=== PATIENT | female | born 1965 | race Caucasian/White ===

== ENCOUNTER 2017-09-09 18:54 | Inpatient (IN) | payer MEDICAID ==
[~2017-09-09] VITALS: Ht 175.3 cm; Wt 121.8 kg
[2017-09-09] MEDS ORDERED: ZOLPIDEM TARTRATE 10 MG TABLET PO PRN (19:45)
[2017-09-09] MEDS ORDERED: HALOPERIDOL 5 MG TABLET PO PRN (19:45)
[2017-09-09] MEDS ORDERED: INFLUENZA VIRUS VACCINE QVS 2017-18 (3YR+)/PF 60 MCG/0.5 ML SYRINGE IM ONE (20:15)
[2017-09-09] MEDS ORDERED: PNEUMOCOCCAL VACCINE POLYVALENT 0.5 ML VIAL [PPSV23] IM ONE (20:15)
[2017-09-09 20:42] VITALS: BP 144/89
[2017-09-09] MEDS ORDERED: IBUPROFEN 600 MG TABLET PO PRN (20:45)
[2017-09-10 04:27] VITALS: BP 139/80
[2017-09-10 08:36] VITALS: BP 142/80
[2017-09-10] MEDS: QUEtiapine FUMARATE 100 MG TABLET PO SCH ×2 (09:25→20:35)
[2017-09-10 16:13] VITALS: BP 154/88
[2017-09-10] MEDS ORDERED: ACETAMINOPHEN 325 MG TABLET PO PRN (16:45)
[2017-09-10] MEDS ORDERED: IBUPROFEN 400 MG TABLET PO PRN (16:45)
[2017-09-11 05:59] VITALS: BP 140/74
[2017-09-11] MEDS: LORazepam 2 MG TABLET PO PRN ×2 (08:13→16:13)
[2017-09-11] MEDS: QUEtiapine FUMARATE 100 MG TABLET PO SCH ×2 (08:13→20:53)
[2017-09-11 08:27] VITALS: BP 147/83
[2017-09-11] MEDS ORDERED: AmLODIPine BESYLATE 2.5 MG TABLET PO SCH (09:00)
[2017-09-11 13:56] VITALS: BP 135/74
[2017-09-11 18:04] VITALS: BP 164/89
[2017-09-11] MEDS: CloNIDine HCL 0.1 MG TABLET PO PRN (18:37)
[2017-09-11 19:37] VITALS: BP 129/71
[2017-09-12 05:32] VITALS: BP 141/77
[2017-09-12] MEDS: LORazepam 2 MG TABLET PO PRN ×2 (05:40→16:29)
[2017-09-12 08:01] LABS: LYMPHOCYTES # (AUTO) 1.9 K/uL (1.0-4.8); MEAN CORPUSCULAR HGB CONC 34.1 G/dL (31.0-37.0); MONOCYTES # (AUTO) 0.4 K/uL (0.1-1.0); NEUTROPHILS # (AUTO) 3.7 K/uL (1.8-7.7)
[2017-09-12 08:04] LABS: BASOPHILS % (AUTO) 0.8 % (0.0-2.0); EOSINOPHILS % (AUTO) 2.8 % (1.0-6.0); LYMPHOCYTES % (AUTO) 30.6 % (22.0-44.0); MEAN CORPUSCULAR HEMOGLOBIN 28.3 pg (26.0-34.0); MEAN CORPUSCULAR VOLUME 83 fL (80-100); MONOCYTES % (AUTO) 6.4 % (2.0-9.0); NEUTROPHILS % (AUTO) 59.4 % (40.0-70.0); PLATELET COUNT (AUTO) 203 K/uL (150-450); RED BLOOD CELL COUNT(AUTO) 4.94 MIL/uL (4.00-5.20); RED CELL DISTRIBUTION WIDTH 16.2 % (11.5-14.5)
[2017-09-12] MEDS: AmLODIPine BESYLATE 5 MG TABLET PO SCH (08:13)
[2017-09-12] MEDS: QUEtiapine FUMARATE 100 MG TABLET PO SCH (08:13)
[2017-09-12 08:28] LABS: ALANINE AMINOTRANSFERASE 37 U/L (12-78); ALBUMIN 3.2 g/dL (3.4-5.0); ALKALINE PHOSPHATASE 86 U/L (46-116); ANION GAP 8 mmol/L (8-16); ASPARTATE AMINOTRANSFERASE 24 U/L (15-37); BILIRUBIN,TOTAL 0.4 mg/dL (0.1-1.0); CALCIUM, TOTAL 8.6 mg/dL (8.8-10.5); CARBON DIOXIDE 28 mmol/L (22-29); CHLORIDE 101 mmol/L (98-107); CHOL/HDL RATIO 4.8 (3.9-5.7); CHOLESTEROL 213 mg/dL (131-200); CREATININE 0.67 mg/dL (0.60-1.30); FREE T4 (FREE THYROXINE) 0.99 ng/dL (0.76-1.46); GLOMERULAR FILTR. RATE CALC > 60 mL/min (>60); GLUCOSE,RANDOM 106 mg/dL (70-110); HDL CHOLESTEROL 44 mg/dL (40-60); LDL CHOL (CALC.) 150 mg/dL (0-130); POTASSIUM 3.6 mmol/L (3.5-5.1); SODIUM SERUM 137 mmol/L (136-145); THYROID STIMULATING HORMONE 1.27 uIU/mL (0.36-3.74); TOTAL PROTEIN, SERUM 6.7 g/dL (6.4-8.2); TRIGLYCERIDES 97 mg/dL (15-150); UREA NITROGEN, BLOOD 9 mg/dL (7-18)
[2017-09-12 08:32] LABS: HEMOGLOBIN A1C 5.8 % (4.5-6.2)
[2017-09-12 08:43] VITALS: BP 130/78
[2017-09-12 16:26] VITALS: BP 178/113
[2017-09-12] MEDS: CloNIDine HCL 0.1 MG TABLET PO PRN (16:29)
[2017-09-12 17:29] VITALS: BP 138/80
[2017-09-12] MEDS: QUEtiapine FUMARATE 200 MG TABLET PO SCH (20:26)
[2017-09-13 07:21] VITALS: BP 132/85
[2017-09-13 08:50] VITALS: BP 133/82
[2017-09-13] MEDS: AmLODIPine BESYLATE 5 MG TABLET PO SCH (08:50)
[2017-09-13] MEDS: QUEtiapine FUMARATE 200 MG TABLET PO SCH ×2 (08:50→20:39)
[2017-09-13 17:13] VITALS: BP 164/88
[2017-09-13] MEDS: CloNIDine HCL 0.1 MG TABLET PO PRN (17:14)
[2017-09-13 18:14] VITALS: BP 135/86
[2017-09-14 07:02] VITALS: BP 161/96
[2017-09-14] MEDS: CloNIDine HCL 0.1 MG TABLET PO PRN (07:03)
[2017-09-14 08:24] VITALS: BP 155/92
[2017-09-14] MEDS: QUEtiapine FUMARATE 200 MG TABLET PO SCH (09:33)
[2017-09-14] MEDS: AmLODIPine BESYLATE 5 MG TABLET PO SCH (09:33)
[2017-09-14 16:23] VITALS: BP 125/85
[2017-09-14] MEDS ORDERED: QUET200T PO (16:48)
[2017-09-14] MEDS ORDERED: AMLO-511 PO (16:50)
== END 2017-09-14 17:30 | disposition home or self-care (01) | DRG 750 ==
LOC: B3A 19:41
DX: F20.0 Paranoid schizophrenia (principal); I10 Essential (primary) hypertension; F10.10 Alcohol abuse, uncomplicated; F19.10 Other psychoactive substance abuse, uncomplicated; Z71.41 Alcohol abuse counseling and surveillance of alcoholic; Z71.51 Drug abuse counseling and surveillance of drug abuser; Z79.899 Other long term (current) drug therapy
CPT/HCPCS: 83036; 84439; 84443; 90471